=== PATIENT | male | born 1975 | race Caucasian/White ===

== ENCOUNTER → 2016-12-17 13:30 | Outpatient (CLI) | payer BC | END | disposition home or self-care (01) | LOC: D.ECHO 09:00 | DX: I20.9 Angina pectoris, unspecified (principal); R06.09 Other forms of dyspnea; I10 Essential (primary) hypertension; R60.9 Edema, unspecified ==

== ENCOUNTER → 2017-02-10 19:57 | Outpatient (CLI) | payer BC | END | disposition home or self-care (01) | LOC: D.SLEEP 12-23 08:00 | DX: R53.83 Other fatigue (principal) ==